=== PATIENT | female | born 1955 | race Caucasian/White ===

== ENCOUNTER 2024-11-16 07:15 | Day surgery (SDC) | payer MEDICARE, OTHER ==
[~2024-11-16 07:15] MED LIST: Sodium Chloride 0.9% 10 ML Syringe FLUSH PRN; Sodium Chloride 0.9% 10 ML Syringe FLUSH SCH
[2024-11-16] MEDS ORDERED: Propofol 200 MG/20 ML SDV ONE ×2 (07:46→08:53)
[2024-11-16] MEDS ORDERED: Midazolam 1 MG/ML 2 ML SDV ONE (07:48)
[2024-11-16] MEDS ORDERED: fentaNYL 100 MCG/2 ML SDV ONE (07:48)
[2024-11-16] MEDS ORDERED: Ropivacaine 0.5% 5 MG/ML 30 ML SDV ONE (07:49)
[2024-11-16] MEDS ORDERED: dexmedeTOMIDine HCl 200 MCG/2 ML SDV ONE (07:49)
[2024-11-16] MEDS: Lactated Ringers 1,000 ML IV SCH (07:50)
[2024-11-16] MEDS ORDERED: Dexamethasone 4 MG/ML 5 ML MDV ONE (08:26)
[2024-11-16] MEDS ORDERED: Ondansetron 4 MG/2 ML SDV ONE (08:26)
[2024-11-16] MEDS ORDERED: ePHEDrine 50 MG/ML SDV ONE (08:44)
[2024-11-16] MEDS ORDERED: Lactated Ringers 1,000 ML ONE (09:04)
[2024-11-16] MEDS: Morphine 8 MG, EPINEPHrine 0.3 MG, Cefuroxime 750 MG, Ketorolac 30 MG, Sodium Chloride ... PRN (09:30)
[2024-11-16] MEDS ORDERED: Ondansetron 4 MG/2 ML SDV IVPUSH PRN (10:25)
[2024-11-16] MEDS ORDERED: fentaNYL 100 MCG/2 ML SDV IVPUSH PRN (10:25)
[2024-11-16] MEDS: Acetaminophen/HYDROcodone 325-5 MG Tab PO PRN (12:31)
== END 2024-11-16 15:10 | disposition home or self-care (01) ==
LOC: JD.SDS 07:15
PROVIDERS: ATTEND Orthopaedic Surgery
DX: M17.12 Unilateral primary osteoarthritis, left knee (principal); E78.00 Pure hypercholesterolemia, unspecified; I10 Essential (primary) hypertension; Z88.0 Allergy status to penicillin; Z79.899 Other long term (current) drug therapy
CPT/HCPCS: 73560-26-LT; 73560-LT; 97116-GP; 97161-GP; A9270-GY; J0169; J0690; J0697; J1100; J1885; J2003; J2250; J2272; J2405; J2704; J2795; J3010; J3373; J3490; J7120